=== PATIENT | female | born 1945 | race Caucasian/White ===

== ENCOUNTER 2018-09-11 06:30 | Day surgery (SDC) | payer OTHER, MEDICARE ==
[2018-09-10 12:03] VITALS: BMI 31.0
--- NOTE | 2018-09-10 12:38 | HP ---
HISTORY OF PRESENT ILLNESS Patient is a 73 year old female here for a routine pre surgical history and physical for scheduled Hammertoe surgery on 09/10/2018. Her past medical history includes hyperlipidemia, gastric bypass surgery/sleeve at [facility] 2016 with a total of 60 lb weight loss and diabetes (now off all diabetes medications after weight loss surgery). She is scheduled for right hammer toe surgery secondary to worsening inflammation and pain x 10 years with worsening of this joint in the past 5 years. She has no difficulty with ambulation, but pain is an issue and she is unable to wear form fitting shoes as they cause discomfort. She usually takes Advil for pain, last taken 3 days ago. Current medications: - simvastatin 40-mg daily Surgical clearance to be provided by patient's primary care physician Dr. Cheema. PCP: Lv Cheema MD Recent travel: none Family History: 54 years, 2 children, 2 grandchildren. parents . Social History: retired, lives with . no recent travel. Smoking: none Alcohol: none Drugs: none REVIEW OF SYSTEMS CONSTITUTIONAL: Absent: fever, chills, diaphoresis, generalized weakness, malaise, loss of appetite, weight change HEENT: Absent: rhinorrhea, nasal congestion, throat pain, throat swelling, difficulty swallowing, mouth swelling, ear pain, eye pain, visual changes CARDIOVASCULAR: Absent: chest pain, syncope, palpitations, irregular heart rate, lightheadedness , peripheral edema RESPIRATORY: Absent: cough, shortness of breath, dyspnea with exertion, orthopnea, wheezing, stridor, hemoptysis GASTROINTESTINAL: Absent: abdominal pain, abdominal distension, nausea, vomiting, diarrhea, constipation, melena, hematochezia GENITOURINARY: Absent: dysuria, frequency, urgency, hesitancy, hematuria, flank pain, genital pain MUSCULOSKELETAL: PRESENT:RIGHT FOOT joint swelling, Absent: rash, itching, pallor HEMATOLOGIC/IMMUNOLOGIC: present: easy bruising ENDOCRINE: Absent: unexplained weight gain, unexplained weight loss, heat intolerance, cold intolerance NEUROLOGIC: Absent: headache, focal weakness or paresthesias, dizziness, unsteady gait, seizure, mental status changes, bladder or bowel incontinence PSYCHIATRIC: Absent: anxiety, depression, suicidal or homicidal ideation, hallucinations. PHYSICAL EXAMINATION: GENERAL: Awake, alert, and fully oriented, in no acute distress. HEAD: Normal with no signs of trauma. EYES: Pupils equal, round and reactive to light, extraocular movements intact, sclera anicteric, conjunctiva clear. No lid lag. EARS, NOSE, THROAT: Ears normal, nares patent, oropharynx clear without exudates. Moist mucous membranes. NECK: Normal range of motion, supple without lymphadenopathy, JVD, or masses. LUNGS: Breath sounds equal, clear to auscultation bilaterally. No wheezes, and no crackles. No accessory muscle use. HEART: Regular rate and rhythm, normal S1 and S2 without murmur, rub or gallop. ABDOMEN: Soft, nontender, not distended, normoactive bowel sounds, no guarding, no rebound, no masses. No hepatomegaly or splenomegaly. MUSCULOSKELETAL: Normal range of motion at all joints. No bony deformities or tenderness. No CVA tenderness. UPPER EXTREMITIES: 2+ pulses, warm, well-perfused. No cyanosis. No clubbing. No peripheral edema. LOWER EXTREMITIES: right foot hammer toe pain, right hammertoe deformity with pain on palpation of this area. NEUROLOGICAL: Normal speech. Normal gait. PSYCHIATRIC: Cooperative. Good eye contact. Appropriate mood and affect. SKIN: Warm, dry, normal turgor, no rashes or lesions noted, normal capillary refill. ASSESSMENT/PLAN: Patient is a 73 year old female here for a routine pre surgical history and physical for scheduled Hammertoe surgery on 09/10/2018. Her past medical history includes hyperlipidemia, gastric bypass surgery/sleeve at [facility] 2016 with a total of 60 lb weight loss and diabetes (now off all diabetes medications after weight loss surgery). She is scheduled for right hammer toe surgery secondary to worsening inflammation and pain x 10 years with worsening of this joint in the past 5 years. She has no difficulty with ambulation, but pain is an issue and she is unable to wear form fitting shoes as they cause discomfort. She usually takes Advil for pain, last taken 3 days ago. Foot surgery: per surgical team pain management per surgery labs in paper chart reviewed and were within normal limits ekg shows sinus fabiana 59 no chest pain, no shortness of breath. she denies any malaise. Labs: sodium: 138 K. 4.6 glucose 88 wbc 7.7 hmg/hct: 13.9/42.5 platelets 262 A1c 6.2 full code Visit type - Case Type Case Type: Scheduled - Emergency Emergency Visit: No - New patient This patient is new to me today: Yes Date on this admission: 09/10/18 - Critical Care Critical Care patient: No
[2018-09-11] MEDS ORDERED: MIDAZOLAM HCL 2 MG/2 ML SINGLE DOSE VIAL ONE ×2 (07:45)
[2018-09-11] MEDS ORDERED: BUPIVACAINE HCL/PF (5 MG/ML) 30 ML VIAL IJ ONE ×2 (08:00→08:29)
[2018-09-11] MEDS ORDERED: LIDOCAINE HCL 1%, 10 MG/ML (20ML VIAL) PNB ONE (08:00)
[2018-09-11] MEDS ORDERED: BACITRACIN 50,000 UNITS VIAL TP ONE (08:01)
[2018-09-11] MEDS ORDERED: DEXAMETHASONE SOD PHOSPHATE 4 MG/1 ML VIAL ONE (08:11)
[2018-09-11] MEDS ORDERED: ceFAZolin SODIUM 1 GM VIAL ONE (08:11)
[2018-09-11] MEDS ORDERED: KETOROLAC TROMETHAMINE 30 MG/1 ML VIAL ONE (08:11)
[2018-09-11] MEDS ORDERED: DEXAMETHASONE SOD PHOSPHATE 4 MG/1 ML VIAL NR ONE (08:29)
[2018-09-11 10:13] VITALS: BP 146/73; PULSE 60; TEMP 97.8
--- NOTE | 2018-09-11 11:38 | OP ---
DATE OF OPERATION: 09/11/2018 SURGEON: Pito Marie DPM DIRECTOR PUBLIC SERVICE: Nikolas Dorsey DPM PREPROCEDURE DIAGNOSIS: Hammertoe, 4th and 5th digits of right foot, exostosis 5th digit of right foot. POSTPROCEDURE DIAGNOSIS: Hammertoe, 4th and 5th digits of right foot, exostosis 5th digit of right foot. PROCEDURE: Arthroplasty 4th and 5th digits, proximal interphalangeal joint right foot, removal of corn at the lateral aspect of 5th digit distally right foot, exostectomy of lateral aspect of distal tip of the 5th distal phalanx right foot. PATHOLOGY: Bone and soft tissue pathology of right foot. ANESTHESIA: MAC and local. ESTIMATED BLOOD LOSS: 1 mL. HEMOSTASIS: Right pneumatic ankle tourniquet at 250 mmHg. MATERIALS: 3-0 Vicryl, 4-0 nylon. INJECTIONS: 10 mL of 1:1 mixture 1% lidocaine plain and 0.5% Marcaine plain preoperative, and 7 mL of 2:8 mixture dexamethasone and a 0.5% Marcaine plain.. DESCRIPTION OF PROCEDURE: The patient was both verbally and visually identified in the preoperative holding area. Informed consent was obtained and placed on the chart. All risks, benefits, and complications were explained to the patient and they fully understood. The patient was then brought to the operating room and placed on the operating table in the supine position. After adequate IV sedation, a local infiltrative block utilizing 10 mL of 1:1 mixture of 1% lidocaine plain and 0.5% Marcaine plain was administered to the right foot. The right foot was then prepped and draped in the usual aseptic fashion. Upon examination of the right foot with an Esmarch the pneumatic ankle, right tourniquet was inflated to 250 mmHg. Attention was then directed to the dorsum of 4th PIP joint right foot where hammertoe deformity noted, and in about 1.5 cm two semi-elliptical converging linear incisions were made utilizing No. 15 blade. The incision was deepened through the subcutaneous tissue using sharp and blunt dissection. Care was taken to identify and retract all vital neurovascular structures. All bleeders were cauterized as necessary. The capsular ligaments were then sharply incised to fully visualize the head of the proximal phalanx. Upon visualization of the head of the proximal phalanx, sagittal bone saw was utilized to transect the proximal phalanx distal 1/3, which was removed from the field. The remaining bone was irrigated with a normal saline solution and bacitracin. Attention was then directed to the dorsum aspect of the 5th PIPJ right foot where hammertoe deformity noted, and two semi-elliptical incisions were made direction from distal-medial proximal-lateral, about 1.5 cm in length. The incision was deepened through the subcutaneous tissue using sharp and blunt dissection. Care was taken to identify and retract all vital neurovascular structures. All bleeders were cauterized as necessary. The capsular ligaments were sharply incised to fully visualize the head of the proximal phalanx. Upon good visualization of the head of the proximal phalanx, sagittal bone saw was utilized to transect the distal 1/3 of the proximal phalanx, which was removed from the field. The remaining area was irrigated with a normal saline solution and bacitracin. Attention was directed to the tip of the distal-lateral aspect of 5th digit of the right foot, where exostosis was noted. Utilizing No. 15 blade, the skin was excised and removed from the operative field, and then, care was taken to identify and retract all vital neurovascular structures, and then, upon good examination, exostosis at the lateral aspect of the tip of the right distal phalanx of 5th digit of right foot was noted and palpable. Utilizing rotary mando, exostectomy was performed. Upon examination after the procedure by palpation, it was noted that the exostosis was completely removed, and there was no palpable bony prominence at the lateral aspect of tip of the distal lateral phalanx of 5th digit right foot. Upon good irrigation of surgical site, extensor tendons were reapproximated with 3-0 Vicryl with simple suture fashion. Skin was reapproximated with 4-0 nylon in simple suture fashion. At this time, postoperative injection consisting of 7 mL of 2:8 mixture of dexamethasone and 0.5% Marcaine plain was administered to the right foot, and the tourniquet was deflated and prompt hyperemic response was noted to all digits of right foot. Surgical site was then dressed with Betadine-soaked Adaptic and 4x4 gauze and Kerlix, then, wrapped with KAMERON bandage. The patient tolerated the procedure and the well and left the operating room to the recovery room in good condition with vital signs stable and vascular status intact. Capillary refill time was instantaneous to all digits of the right foot. FANNY Jesus/[id number] MTDD
--- NOTE | 2018-09-14 13:35 | PATH ---
Surgical Pathology Report Patient Name: KEYON ZHENG [facility]. Rec. #: [id number] /Age/Gender: 1945 (Age: 73) / F Account: [id number] Location: [facility] SURGICAL Taken: 09/11/2018 Received: 09/11/2018 Reported: 09/14/2018 Physicians: Pito Marie DPM Specimen(s) Received SKIN AND BONE 4TH AND 5TH HAMMER TOE Clinical History Right foot fourth and fifth digit hammertoes Final Diagnosis BONE AND SKIN, FOURTH AND FIFTH HAMMERTOES, REPAIR: BONE WITH DEGENERATIVE CHANGES, SCANT FIBROCONNECTIVE TISSUE, AND SKIN. Electronically Signed Jessica Arambula M.D. Gross Description Received in formalin labeled "bone and skin fourth and fifth hammertoes," are 2 nunez, irregular portions of bone measuring 0.9 x 0.5 x 0.4 cm and 0.8 x 0.5 x 0.4 cm. Also received within the same container are 2 nunez skin shaves averaging 1.0 x 0.5 cm. No discrete lesions are identified. Head Animal Keeper sections are submitted in one cassette, following decalcification. /09/11/201809/11/2018
== END 2018-09-11 10:15 | disposition home or self-care (01) ==
LOC: JASU-SURG 06:30
PROVIDERS: ATTEND Podiatrist Foot Surgery
PROC: 0QBQ0ZZ Excision of Right Toe Phalanx, Open Approach (ICD-10-PCS; 2018-09-11)
PROC: 0SRP0JZ Replacement of Right Toe Phalangeal Joint with Synthetic Substitute, Open Approach (ICD-10-PCS; principal; 2018-09-11 07:30)
DX: M20.41 Other hammer toe(s) (acquired), right foot (principal); M89.9 Disorder of bone, unspecified
CPT/HCPCS: 73630-TC-RT-FY; 88305-TC; 88311-TC